=== PATIENT | female | born 1965 | race Two or more races ===

== ENCOUNTER 2025-02-28 16:32 | Emergency (ER) | payer OTHER ==
[~2025-02-28] VITALS: Ht 162.6 cm; Wt 106.6 kg
[2025-02-28] MEDS ORDERED: ENALAPRILAT DIHYDRATE 1.25 MG/ML VIAL IV ONE ×2 (19:30→19:37)
[2025-02-28] MEDS ORDERED: INSULIN REGULAR, HUMAN 1,000 UNIT/10 ML UNITS IV ONE (19:30)
[2025-02-28 20:11] LABS: BASO % 0.4 % (0.1-1.2); EOS # 0.21 (0.04-0.54); EOS % 2.5 % (0.7-7.0); LYMPH # 3.32 (1.18-3.74); LYMPH % 40.0 % (19.3-53.1); MEAN PLATELET VOLUME 11.50 fl (9.4-12.4); MONO # 0.50 (0.24-0.82); MONO % 6.0 % (4.7-12.5); NEUT # 4.24 (1.56-6.13); NEUT % 51.0 % (34.0-71.1); RED CELL DISTRIBUTION WIDTH 12.7 % (11.6-14.4)
[2025-02-28 20:29] LABS: URINE APPEARANCE Clear; URINE BILIRRUBIN Negative (NEGATIVE); URINE BLOOD Negative; URINE COLOR Yellow; URINE KETONE Trace (NEGATIVE); URINE LEUKOCYTE Negative; URINE NITRATE Negative; URINE PROTEIN Trace (NEGATIVE); URINE UROBILINOGEN 0.2 E.U./dl
[2025-02-28 20:35] LABS: URINE BACTERIA 845.9 uL (0.0-1933); URINE EPITHELIAL CELLS 6.4 uL (0.0-38.8); URINE RBC 6.5 uL (0.0-20.8); URINE WBC 13.6 uL (0.0-23.2)
[2025-02-28 20:35] LABS: ALT/SGPT 83.0 U/L (12-78); AST/SGOT 71.0 U/L (15-37); BILIRUBIN TOTAL 0.84 mg/dL (0.3-1.2); BUN CREA RATIO 16.0 (7.0-25.0); CREATININE SERUM 0.83 mg/dL (0.55-1.02); GFR 70.12; GLOBULINA 4.2 G/DL (2.4-3.5); OSMOLALITY SERUM 284.0 MOSM/KG (275-295)
[2025-02-28 20:36] LABS: GLUCOSE FASTING 205.0 mg/dL (65-100)
[2025-02-28 20:38] LABS: URINE CAST 1.02 uL (0.0-1.40); URINE GLUCOSE 500 MG/DL (NEGATIVE)
[2025-02-28] MEDS ORDERED: METFORMIN HCL500 M3 PO (21:24)
== END 2025-02-28 21:46 ==
LOC: ER 16:32
PROVIDERS: General Practice
DX: E11.65 Type 2 diabetes mellitus with hyperglycemia (principal); Z91.148 Patient's other noncompliance with medication regimen for other reason; M54.50 Low back pain, unspecified; Z91.013 Allergy to seafood